=== PATIENT | female | born 1970 | race Caucasian/White ===

== ENCOUNTER 2016-09-11 01:21 | Emergency (ER) | payer OTHER, MEDICAID ==
[2016-09-11 01:35] VITALS: BP 132/81; PULSE 96; RESP 20; O2SAT 96
--- NOTE | 2016-09-11 02:41 | EDPHY ---
H & P Stated Complaint: recent tx for sinus infection, symptoms continuing, cough Time Seen by Provider: 09/11/16 02:20 HPI/ROS: Chief Complaint: Sinus pain, congestion, recurrent sinus infections HPI: 46-year-old woman presenting complaining of worsening sinus pain and congestion for the last 3 days. Patient has a history of recurrent sinus infections. She has been having worsening facial pain specialist stooping forward. He has had greenish discharge and congestion. No nausea or vomiting. He has had a chronic cough. Has had some chills but no fevers. ROS: 10 point Review of Systems is negative except as noted in the HPI. PMH: Sinusitis, nonspecified mental illness with recent hospitalization Social History: No smoking, no alcohol, no recreational drug use Family History: non-contributory Physical Exam: Gen: Awake, Alert, No Distress HEENT: Bilateral frontal sinus and maxillary sinus tenderness to percussion Nose: no rhinorrhea Eyes: PERRLA, EOMI Mouth: Moist mucosa Neck: Supple, no JVD Chest: nontender, lungs clear to auscultation Heart: S1, S2 normal, no murmur Abd: Soft, non-tender, no guarding Back: no CVA tenderness, no midline tenderness Ext: no edema, non-tender Skin: no rash Neuro: CN II-XII intact, Sensation grossly intact, Strength 5/5 in bilateral upper and lower extremities - Personal History LMP (Females 10-55): Post Menopausal - Medical/Surgical History Hx Asthma: No Hx Diabetes: No Other PMH: pituitary adrenal insufficiency, lymphopenia, hypothyroid, fibromyalgia, Aspergers, anxiety, PTSD, ADD - Social History Smoking Status: Never smoked Constitutional: Initial Vital Signs Heart Rate 96 09/11/16 01:29 Respiratory Rate 20 09/11/16 01:29 Blood Pressure 132/81 H 09/11/16 01:29 O2 Sat (%) 96 09/11/16 01:29 O2 Delivery Mode Room Air Allergies/Adverse Reactions: clonazepam [From Klonopin] Allergy (Verified 09/11/16 01:37) codeine Allergy (Verified 09/11/16 01:37) diphenhydramine Allergy (Verified 09/11/16 02:07) Anxiety gluten Allergy (Verified 09/11/16 01:37) metoclopramide [From Reglan] Allergy (Verified 09/11/16 01:37) Penicillins Allergy (Verified 09/11/16 01:37) Sulfa (Sulfonamide Antibiotics) Allergy (Verified 09/11/16 01:37) "most of the azos" Allergy (Uncoded 09/11/16 01:37) dyes Allergy (Uncoded 09/11/16 02:00) Home Medications: Medication Instructions Recorded Advair 09/11/16 Albuterol [Proventil Inhaler HFA 1 - 2 puffs IH Q4H PRN #1 mdi 09/11/16 (*)] Ativan 09/11/16 Doxycycline Hyclate [Vibramycin 100 mg PO BID #30 cap 09/11/16 100 MG (*)] Estradiol Transdermal Patch 09/11/16 Flonase Nasal [place] 09/11/16 Guanfacine HCl ER 09/11/16 Hydrocortisone 09/11/16 LEVOTHYROXINE SODIUM 09/11/16 Neurontin 09/11/16 Proair Hfa 09/11/16 Provera 09/11/16 Prozac 10 MG (*) 09/11/16 Robaxin 500 mg (*) 09/11/16 VITAMIN D 09/11/16 Zyprexa 09/11/16 Departure - Departure Disposition: Home, Routine, Self-Care Clinical Impression: Acute sinusitis Condition: Good Instructions: Sinusitis (ED) Additional Instructions: Please take your full course of antibiotics. Follow up with your doctor [facility] in 3-4 days for re-evaluation. Referrals: [facility] [Other] - As per Instructions Prescriptions: Albuterol [Proventil Inhaler HFA (*)] 1 - 2 puffs IH Q4H PRN #1 mdi PRN Reason: Wheezing Doxycycline Hyclate [Vibramycin 100 MG (*)] 100 mg PO BID #30 cap
== END 2016-09-11 03:11 | disposition home or self-care (01) ==
DX: J01.90 Acute sinusitis, unspecified (principal)

== ENCOUNTER 2016-09-12 18:49 | Emergency (ER) | payer OTHER, MEDICAID ==
--- NOTE | 2016-09-12 18:56 | EDPHY ---
HPI/HX/ROS/PE/MDM Narrative: CHIEF COMPLAINT: Panic attack HPI: The patient is a 46 y/o female arriving via EMS complaining of a panic attack onset this evening. She has a difficult time describing why she is in the ED and repeatedly states there is nothing we can do for her here. She states she was unable to get into her apartment and PD was called. She says "my choices were to get arrested for trespassing" or come to the ED because the PD would not provide a ride to a [facility] in [facility] where she states she has a bed. She also reports she is off-schedule for her anxiety medications. She expresses that she doesn't want to be in the ED, she just wants to leave so she can sleep. She denies medical complaints that she is seeking help for in the ED tonight. She was seen here yesterday for sinusitis and prescribed doxycycline. She is a poor historian. REVIEW OF SYSTEMS: Patient is a poor historian and unable to provide. PMH: Anxiety, sinusitis, Asperger's, PTSD, pituitary adrenal insufficiency, hypothyroid, fibromyalgia. SOCIAL HISTORY: Lives in [place]. Denies smoking or alcohol use. Prior medical records reviewed including ED visit 09/11/16 for sinus pain. PHYSICAL EXAM: General:Patient is alert, agitated. ENT:Eyes are normal to inspection. ENT inspection normal. Neck: Normal inspection. Full range of motion. Respiratory:No respiratory distress. Breath sounds normal bilaterally. Cardiovascular: Tachycardic regular rate and rhythm. Strong peripheral pulses. Normal cap refill. Abdomen:The abdomen is nontender to palpation. There are no peritoneal signs. Back: Normal to inspection. No tenderness to palpation. Skin: Normal color. No rash. Warm and dry. Extremities: Normal appearance. Full range of motion. Neuro: Oriented x3. Normal motor function. Normal sensory function. MDM: This patient is essentially here because she was not allowed into the homeless alf, which caused anxiety. I see no signs of medical emergency at this time , and patient is comfortable with the plan of discharge. General Time Seen by Provider: 09/12/16 18:49 Initial Vital Signs: Initial Vital Signs Temperature (C) 37.7 C 09/12/16 18:49 Heart Rate 115 H 09/12/16 18:49 Respiratory Rate 22 H 04/16/17 18:49 Blood Pressure 121/67 H 09/12/16 18:49 O2 Sat (%) 95 09/12/16 18:49 O2 Delivery Mode Room Air Allergies/Adverse Reactions: clonazepam [From Klonopin] Allergy (Verified 09/11/16 01:37) codeine Allergy (Verified 09/11/16 01:37) diphenhydramine Allergy (Verified 09/11/16 02:07) Anxiety gluten Allergy (Verified 09/11/16 01:37) metoclopramide [From Reglan] Allergy (Verified 09/11/16 01:37) Penicillins Allergy (Verified 09/11/16 01:37) Sulfa (Sulfonamide Antibiotics) Allergy (Verified 09/11/16 01:37) "most of the azos" Allergy (Uncoded 09/11/16 01:37) dyes Allergy (Uncoded 09/11/16 02:00) Home Medications: Medication Instructions Recorded Advair 09/11/16 Albuterol [Proventil Inhaler HFA 1 - 2 puffs IH Q4H PRN #1 mdi 09/11/16 (*)] Ativan 09/11/16 Doxycycline Hyclate [Vibramycin 100 mg PO BID #30 cap 09/11/16 100 MG (*)] Estradiol Transdermal Patch 09/11/16 Flonase Nasal [place] 09/11/16 Guanfacine HCl ER 09/11/16 Hydrocortisone 09/11/16 LEVOTHYROXINE SODIUM 09/11/16 Neurontin 09/11/16 Proair Hfa 09/11/16 Provera 09/11/16 Prozac 10 MG (*) 09/11/16 Robaxin 500 mg (*) 09/11/16 VITAMIN D 09/11/16 Zyprexa 09/11/16 Departure - Departure Disposition: Home, Routine, Self-Care Clinical Impression: Anxiety Condition: Good Instructions: Anxiety (ED) Additional Instructions: Continue taking your medications as directed. Follow up with your primary care provider for symptoms not improved in the next few days. Referrals: Patient,NotPresent [Unknown] - As per Instructions [facility],. [Clinic] - As per Instructions Report Scribed for: Jeevan García Report Scribed by: Alejandra Burk Date of Report: 09/12/16 Time of Report: 18:56 Physician Review and Approval Statement: Portions of this note were transcribed by an ED scribe. I personally performed the history, physical exam, and medical decision making; and confirm the accuracy of the information in the transcribed note.
[2016-09-12 19:05] VITALS: TEMP 99.9
[2016-09-12 19:26] VITALS: BP 118/63; PULSE 116; RESP 16; O2SAT 96
== END 2016-09-12 19:25 | disposition home or self-care (01) ==
LOC: EDUNIT#
DX: F41.9 Anxiety disorder, unspecified (principal)